=== PATIENT | male | born 1955 ===

== ENCOUNTER 2018-01-03 12:31 | Outpatient (CLI) | payer OTHER ==
[2018-01-03 13:23] LABS: INR-International Normal Ratio 3.5
== END 2018-01-03 12:32 | disposition home or self-care (01) ==
LOC: NAV LABSP 12:31
PROVIDERS: ATTEND Family Medicine
DX: I48.91 Unspecified atrial fibrillation (principal); I48.92 Unspecified atrial flutter
CPT/HCPCS: 85610